=== PATIENT | female | born 1980 ===

== ENCOUNTER 2017-01-14 05:52 | Inpatient (IN) ==
[2017-01-14] MEDS ORDERED: MEPERIDINE 50 MG/1 ML VIAL IV PRN (06:12)
[2017-01-14] MEDS ORDERED: ONDANSETRON 4 MG/2 ML VIAL IV PRN (06:12)
[2017-01-14] MEDS: LACTATED RINGERS 1,000 ML IV SCH ×2 (06:20→10:13)
[2017-01-14] MEDS ORDERED: OXYTOCIN/LR 20 UNIT/1,000 ML BAG IV SCH (06:30)
[2017-01-14 06:32] LABS: Basophils % 0.3 % (0.0-0.8); Eosinophils # 0.1 10*3/uL (0.0-0.87); Eosinophils % 1.1 % (0.00-10.9); Hematocrit 33.3 VOL% (35.7-47.0); Hemoglobin 11.4 GM/DL (12.0-16.0); Immature Granulocytes % 0.8 %; Immature Granulocytes Absolute 0.06 #; Lymphocytes % 27.8 % (21.3-54.2); Mean Corpuscular HGB Conc 34.2 GM/DL (32-36); Mean Corpuscular Hemoglobin 31 PG (27-34); Mean Platelet Volume 11.3 FL (9.6-12.0); Monocytes # 0.7 10*3/uL (0.11-0.8); Monocytes % 9.6 % (1.7-12.7); Neutrophils # 4.3 10*3/uL (1.4-7.4); Neutrophils % 60.4 % (38.7-73.9); Platelet Count 179 T/CUMM (130-400); Red Cell Distribution Width 13.6 % (9.3-17.3); White Blood Count 7.1 T/CUMM (4-12)
[2017-01-14 07:20] LABS: Alanine Aminotransferase 15 U/L (13-56); Albumin 2.5 G/DL (3.4-5.0); Alkaline Phosphatase 254 U/L (45-117); Aspartate Amino Transferase 12 U/L (0-37); Bilirubin,Total < 0.39 MG/DL (0.2-1.0); Blood Urea Nitrogen 9 MG/DL (7-18); Calcium 8.4 MG/DL (8.5-10.1); Glucose 68 MG/DL (74-106); Osmolality,Calculated 275.4 MOS/KG (273-304); Potassium 3.7 MMOL/L (3.5-5.1); Sodium 140 MMOL/L (136-145); Total Protein 6.4 G/DL (6.4-8.3); Uric Acid 3.2 MG/DL (2.6-6.0)
[2017-01-14] MEDS ORDERED: ONDANSETRON 4 MG/2 ML VIAL IV ONE (07:52)
[2017-01-14] MEDS ORDERED: hydrOXYzine HCL 25 MG/1 ML VIAL IM PRN (07:52)
[2017-01-14] MEDS ORDERED: PROMETHAZINE 25 MG/1 ML VIAL IM ONE (07:52)
[2017-01-14] MEDS ORDERED: fentaNYL 2 MCG/ROPIV 0.2% EPID 150 ML EPIDURAL SCH (07:52)
[2017-01-14] MEDS ORDERED: diphenhydrAMINE 50 MG/1 ML VIAL IV PRN ×2 (07:52)
[2017-01-14] MEDS ORDERED: ePHEDrine 50 MG/ML AMP IV PRN (07:52)
[2017-01-14] MEDS ORDERED: LACTATED RINGERS 1,000 ML IV ONE (07:52)
[2017-01-14] MEDS ORDERED: LACTATED RINGERS 500 ML IV ONE (07:52)
[2017-01-14] MEDS ORDERED: LACTATED RINGERS 1,000 ML IV SCH (08:00)
[2017-01-14] MEDS ORDERED: FAMOTIDINE 20 MG/2 ML VIAL IV ONE (09:54)
[2017-01-14] MEDS ORDERED: CITRIC ACID/SODIUM CITRATE 30 ML UDCUP PO ONE (09:55)
--- NOTE | 2017-01-14 10:05 | OB/GYN History & Physical ---
History of Present Illness Chief complaint: In for elective induction of labor due to term . History of present illness: Ms. Bliss is a 36 year old female who is a 8 para 7 living 7. Her [place] is 01/20/2017. Estimated gestational age is 39 weeks and 1 day. The patient presents for elective induction of labor due to term . The risk and benefits have been thoroughly discussed with this patient and significant other, plan of care has been discussed with Dr. Khoury and all parties are in agreement plan. The patient had limited care through the [facility] she had several missed appointments however her was uneventful. labs: She is O+, rubella is immune, serology is nonreactive, hepatitis B is negative, HIV is negative, and GBS cultures negative. The patient has had 7 previous vaginal deliveries her largest infant weighed 8 pounds and 11 ounces. She reported no complications with any of her pregnancies. Home Medications Medication Instructions Recorded Confirmed Type Pnv No.95/Ferrous Fum/Folic AC 1 each PO DAILY 01/14/17 01/14/17 History [ Tablet] Allergies Allergy/AdvReac Type Severity Reaction Status Date / Time No Known Allergies Allergy Verified 01/14/17 06:12 12 point system: reviewed and no additional remarkable complaints except as stated Medical,Surgical,& Family Hx - Medical History HEENT: History of: Eye Problem (GLASSES) Respiratory: History of: Asthma Reproductive: No history of: Ectopic , Complication - Surgical History Surgical History: noncontributory Reproductive Surgeries: Patient denies;: Section - Family History Family History: Reports;: Family Diabetes (MOTHER AND BROTHER) - Social History Smoking Status: Never smoker Frequency of Alcohol Use: None Type of Drug Use: None Marital Status: Single Lives With:: Significant Other Functional capacity: independent ambulation Exam [employer] - Constitutional Vitals: Vital Signs Temp Pulse Resp BP 01/14/17 06:57 97.6 F 63 20 125/68 General appearance: no acute distress - Antepartum / Post Antepartum Exam Cervix - Dilatation: 4 cm Effacement: 70% Station: -2 Rupture: Intact Presentation: Vertex Heart Rate: 140 Breast: bilateral: normal Abdomen obstetrics: Present: bowel sounds normal Vulva: bilateral: normal Vagina: Present: normal moisture Uterus exam: Present: enlarged Anus/Rectum: Present: normal perianal skin - Head Head exam: Present: normal inspection - Respiratory Respiratory exam: Present: clear to auscultation bilaterally - Cardiovascular Cardiovascular exam: Present: regular rate and rhythm - GI/Abdominal GI/Abdominal exam: Present: normal bowel sounds, soft - Extremities Exam Extremities exam: Present: normal inspection - Back Exam Back exam: Present: normal inspection - Neurological Exam Neurological exam: Present: alert, oriented X3 - Psychiatric Psychiatric exam: Present: normal affect, normal mood - Skin Skin exam: Present: normal color, warm Assessment and Plan (1) Term Status: Acute Assessment and plan: Admit IV fluids IV Pitocin per protocol Artificial rupture membranes when appropriate Internal monitors if indicated Epidural anesthesia if desired Anticipate Current Visit: Yes Results - Labs CBC & BMP: 01/14/17 06:25 01/14/17 06:25
[2017-01-14] MEDS ORDERED: METHYLERGONOVINE 0.2 MG/1 ML AMP ONE (11:34)
--- NOTE | 2017-01-14 11:51 | Event Note ---
HPI: Ms. Bliss is a 36-year-old female who presented to the labor department for elective induction of labor due to term . The risk and benefits were thoroughly discussed with this patient and significant other, plan of care was discussed with Dr. Khoury and all parties were in agreement plan. Stage I: The patient was admitted she received IV fluids and IV Pitocin per protocol. Artificial rupture membranes was performed clear fluid noted. The patient progressed in labor with a CAT 1 tracing. Epidural anesthesia was obtained for pain control. The patient had an uneventful course of labor. Stage II: The patient was complete and complained of pressure and desire to push. The patient pushed for approximately 3 times at which time the 's head was delivered. The mouth and nose were suctioned on the perineum. The remainder the was delivered at 1140. A viable female infant was noted. Apgars were 8 at 1 minute and 9 at 5 minutes. weight was 7 pounds and 0 ounces. A cord pH was obtained and sent to the lab. The was then placed on the mom's abdomen for skin to skin bonding. Stage III: A spontaneous delivery of a Carrillo placenta with a three-vessel cord noted. The placenta was further examined appeared to be grossly intact. The vagina cervix was inspected with no tears or lacerations noted. Estimated blood loss was approximately 100 cc. At the time of dictation mother and baby are both in stable condition.
[2017-01-14] MEDS ORDERED: LANOLIN 50% CREAM 0.3 OZ TUBE TOP PRN (11:52)
[2017-01-14] MEDS ORDERED: BISACODYL 10 MG SUPP RECTAL PRN (11:52)
[2017-01-14] MEDS ORDERED: MEASLES/MUMPS/RUBELLA VACCINE 0.5 ML VIAL SUBCUT ONE (11:52)
[2017-01-14] MEDS ORDERED: OXYTOCIN/LR 20 UNIT/1,000 ML BAG IV ONE (11:52)
[2017-01-14] MEDS ORDERED: DIPH/TET/ACEL PERT BOOSTER VACCINE 0.5 ML VIAL IM ONE (11:52)
[2017-01-14] MEDS ORDERED: WITCH HAZEL PADS 100/JAR TOP PRN (11:52)
[2017-01-14] MEDS ORDERED: oxyCODONE/ACETAMINOPHEN 5-325 MG TABLET PO PRN (11:52)
[2017-01-14] MEDS ORDERED: ACETAMINOPHEN 325 MG TABLET PO PRN (11:52)
[2017-01-14] MEDS ORDERED: RHO(D) IMMUNE GLOBULIN 300 MCG SYRINGE IM ONE (11:52)
[2017-01-14] MEDS ORDERED: BENZOCAINE 20%/MENTHOL 0.5% SPRAY 56 GM CAN TOP PRN (11:52)
[2017-01-14] MEDS ORDERED: HYDROCORTISONE 2.5% RECTAL CREAM 30 GM TUBE TOP PRN (11:52)
[2017-01-14] MEDS ORDERED: ACETAMINOPHEN/CODEINE 300-30 MG TABLET PO PRN (11:54)
[2017-01-14 12:04] LABS: Cord Arterial Blood HCO3 25.5 MMOL/L
[2017-01-14 12:07] LABS: Cord Venous Blood PCO2 36.9 MMHG; Cord Venous Blood PO2 28.3 MMHG
[2017-01-14] MEDS: IBUPROFEN 800 MG TABLET PO PRN (17:53)
--- NOTE | 2017-01-14 18:13 | Anesthesia Post-Op ---
Anesthesia Post OP - Post Ansesthetic Evaluation Patient seen in post op: Yes Resp: within normal limits CV: within normal limits Mental: within normal limits Temp: within normal limits [id number]: within normal limits Nausea and Vomiting: within normal limits Pain: within normal limits
[2017-01-14] MEDS: DOCUSATE SODIUM 100 MG CAPSULE PO SCH (20:44)
[2017-01-15] MEDS: oxyCODONE/ACETAMINOPHEN 5-325 MG TABLET PO PRN ×4 (00:15→21:52)
[2017-01-15 06:46] LABS: Basophils % 0.2 % (0.0-0.8); Eosinophils # 0.1 10*3/uL (0.0-0.87); Eosinophils % 2.1 % (0.00-10.9); Hematocrit 28.4 VOL% (35.7-47.0); Hemoglobin 9.7 GM/DL (12.0-16.0); Immature Granulocytes % 0.6 %; Immature Granulocytes Absolute 0.04 #; Lymphocytes % 31.5 % (21.3-54.2); Mean Corpuscular HGB Conc 34.2 GM/DL (32-36); Mean Corpuscular Hemoglobin 31 PG (27-34); Mean Corpuscular Volume 89.9 FL (87-102); Mean Platelet Volume 11.3 FL (9.6-12.0); Monocytes # 0.5 10*3/uL (0.11-0.8); Monocytes % 8.1 % (1.7-12.7); Neutrophils # 3.6 10*3/uL (1.4-7.4); Neutrophils % 57.5 % (38.7-73.9); Platelet Count 137 T/CUMM (130-400); Red Blood Count 3.16 MC/CUMM (3.8-5.5); Red Cell Distribution Width 13.5 % (9.3-17.3); White Blood Count 6.3 T/CUMM (4-12)
[2017-01-15] MEDS: DOCUSATE SODIUM 100 MG CAPSULE PO SCH ×2 (08:53→21:52)
[2017-01-15] MEDS: IBUPROFEN 800 MG TABLET PO PRN (08:55)
--- NOTE | 2017-01-15 09:47 | OB/GYN Progress Note ---
Assessment and Plan (1) Term Status: Acute Assessment and plan: Admit IV fluids IV Pitocin per protocol Artificial rupture membranes when appropriate Internal monitors if indicated Epidural anesthesia if desired Anticipate Current Visit: Yes (2) Vaginal delivery Status: Acute Assessment and plan: Initiate routine orders. Current Visit: Yes DATA ANALYSIS INTERN - PN: Subj Interval history: Stable with no complaints. Bonding well with Exam DATA ANALYSIS INTERN - Constitutional Vitals: Vital Signs Temp Pulse Resp BP Pulse Ox 01/15/17 07:23 97.9 F 57 L 20 125/79 100 01/15/17 04:00 97.1 F L 55 L 20 124/72 98 01/15/17 02:00 16 01/15/17 00:15 98 F 66 18 98/64 99 01/14/17 19:15 97.5 F L 67 20 127/77 98 01/14/17 17:00 67 20 122/66 98 01/14/17 16:00 97.1 F L 68 18 122/66 98 01/14/17 15:00 55 L 18 126/73 98 01/14/17 14:30 63 20 130/73 97 01/14/17 14:00 97.6 F 62 20 115/53 97 01/14/17 12:00 97.4 F L 66 22 123/61 General appearance: no acute distress - Antepartum / Post Post Exam Breast: bilateral: normal Abdomen obstetrics: Present: bowel sounds normal Vagina: Present: normal moisture, discharge (Light lochia rubra) Uterus exam: Present: enlarged Anus/Rectum: Present: normal perianal skin - Respiratory Respiratory exam: Present: clear to auscultation bilaterally - Cardiovascular Cardiovascular exam: Present: regular rate and rhythm - GI/Abdominal GI/Abdominal exam: Present: normal bowel sounds, soft - Extremities Exam Extremities exam: Present: normal inspection - Back Exam Back exam: Present: normal inspection - Neurological Exam Neurological exam: Present: alert, oriented X3 - Psychiatric Psychiatric exam: Present: normal affect, normal mood - Skin Skin exam: Present: normal color, warm Results - Labs CBC & BMP: 01/15/17 06:30 01/14/17 06:25
[2017-01-16] MEDS: DOCUSATE SODIUM 100 MG CAPSULE PO SCH (09:02)
--- NOTE | 2017-01-16 11:34 | Discharge Summary ---
Hospital Course - Hospital Course Hospital Course: Ms. Bliss is a 36-year-old female who presents to the labor department for elective induction of labor due to term . The patient subsequently delivered a viable with no complications. She has followed a routine course and she has done well. Her bleeding is minimal with no odor. She is voiding without difficulty. Her perineum is intact with no edema. Her vital signs and lab values are stable. She is bonding well with her . She will be discharged home prescriptions for pain and a follow-up appointment in our office. Diagnosis - Discharge Diagnosis (1) Term Status: Acute (2) Vaginal delivery Status: Acute Specialty Discharge - Follow Up or Referrals Follow up with: Hieu Khoury MD [Physician] - (follow up in 6 weeks.) Discharge Plan - Discharge Data Disposition: Disch To Home/Self Care Condition at Discharge: Stable Discharge Diet: advance to your usual diet Activity: resume usual activities as tolerated Hygiene: no restrictions Weight Bearing at Discharge: weight bear as tolerated Driving: no restrictions Contact your physician if you experience:: fever over 101, pain uncontrolled by pain medications - Discharge Medications New Acetamin/Codeine 300-30 Tab [Tylenol/Codeine #3] 2 tablet PO Q4H PRN #30 tablet PRN Reason: Pain Mild (1-3) Hydrocortisone 2.5% Rectal Cr [Anusol HC Cream] 1 applic TOP QID PRN #30 applic PRN Reason: Hemorrhoids No Action Pnv No.95/Ferrous Fum/Folic AC [ Tablet] 1 each PO DAILY - Follow Up or Referral - Forms/Instructions Instructions: Perineal Care (DC), Bleeding (DC) Exam - Constitutional Vitals: Period Temp Pulse Resp BP Sys/Graves Pulse Ox Last 24 Hr 96.8 F-98.3 F 61-67 18-20 107-133/61-84 96-98 General appearance: no acute distress - Head Head exam: Present: normal inspection - Respiratory Respiratory exam: Present: clear to auscultation bilaterally - Cardiovascular Cardiovascular exam: Present: regular rate and rhythm - GI/Abdominal GI/Abdominal exam: Present: normal bowel sounds, soft - Extremities Exam Extremities exam: Present: normal inspection - Neurological Exam Neurological exam: Present: alert, oriented X3 - Psychiatric Psychiatric exam: Present: normal affect, normal mood - Skin Skin exam: Present: normal color, warm DS: Provider Date of admission: 01/14/17 06:12 Primary care physician: Griffin Pyle MD Attending physician on admission: Hieu Khoury MD Consults: 01/14/17 06:12 Consult to Anesthesiology [CONS] Routine Consulting Provider: Reason for Anesthesiology: Epidural Consult Comment: Epidural for pain managment 01/14/17 11:52 Consult to Public Administration Teacher [CONS] Routine Consult Public Administration Teacher: Breast Feeding Discharging clinician: Pamela Jara CNM Expected date of discharge: 01/16/17
[2017-01-16 13:06] VITALS: BP 132/79
== END 2017-01-16 13:00 | disposition home or self-care (01) | DRG 560 ==
LOC: N.LDOUT 05:52 → N.LD 05:57 → N.OB 13:51
PROVIDERS: ADMIT Obstetrics & Gynecology; ATTEND Obstetrics & Gynecology

== ENCOUNTER 2018-02-07 21:41 | Inpatient (IN) ==
[2018-02-07] MEDS ORDERED: ONDANSETRON 4 MG/2 ML VIAL IV PRN (21:55)
[2018-02-07] MEDS ORDERED: ACETAMINOPHEN 325 MG TABLET PO PRN (21:55)
[2018-02-07] MEDS ORDERED: MEPERIDINE 50 MG/1 ML VIAL IV PRN (21:55)
[2018-02-07] MEDS ORDERED: BUTORPHANOL 2 MG/ML VIAL IV PRN (21:55)
[2018-02-07] MEDS ORDERED: CITRIC ACID/SODIUM CITRATE 30 ML UDCUP PO ONE (21:56)
[2018-02-07] MEDS ORDERED: FAMOTIDINE 20 MG/2 ML VIAL IV ONE (21:56)
[2018-02-07] MEDS ORDERED: LACTATED RINGERS 1,000 ML IV SCH (22:00)
[2018-02-07] MEDS ORDERED: fentaNYL 2 MCG/ROPIV 0.2% EPID 150 ML EPIDURAL SCH (22:00)
[2018-02-07 22:23] LABS: Basophils % 0.1 % (0.0-0.8); Eosinophils % 0.5 % (0.00-10.9); Hemoglobin 10.7 GM/DL (12.0-16.0); Immature Granulocytes % 0.7 %; Immature Granulocytes Absolute 0.06 #; Lymphocytes % 12.1 % (21.3-54.2); Mean Corpuscular HGB Conc 33.4 GM/DL (32-36); Mean Corpuscular Hemoglobin 31 PG (27-34); Mean Corpuscular Volume 91.2 FL (87-102); Mean Platelet Volume 11.7 FL (9.6-12.0); Monocytes # 0.5 10*3/uL (0.11-0.8); Monocytes % 6.1 % (1.7-12.7); Neutrophils # 6.6 10*3/uL (1.4-7.4); Neutrophils % 80.5 % (38.7-73.9); Platelet Count 158 T/CUMM (130-400); Red Blood Count 3.51 MC/CUMM (3.8-5.5); Red Cell Distribution Width 14.1 % (9.3-17.3); White Blood Count 8.2 T/CUMM (4-12)
[2018-02-07] MEDS ORDERED: miSOPROStol 200 MCG TABLET ONE (22:30)
[2018-02-07] MEDS ORDERED: LIDOCAINE 1% 50 ML VIAL ONE (22:30)
[2018-02-07] MEDS ORDERED: METHYLERGONOVINE 0.2 MG/1 ML AMP ONE (22:30)
[2018-02-07] MEDS ORDERED: OXYTOCIN 40 UNIT in LACTATED RINGERS 1,000 ML IV ONE (22:30)
[2018-02-07 23:07] LABS: Albumin 2.4 G/DL (3.4-5.0); Bilirubin,Total 0.4 MG/DL (0.2-1.0); Calcium 7.9 MG/DL (8.5-10.1); Osmolality,Calculated 279.1 MOS/KG (273-304); Potassium 3.5 MMOL/L (3.5-5.1); Total Protein 6.4 G/DL (6.4-8.3)
[2018-02-07] MEDS ORDERED: OXYTOCIN/LR 20 UNIT/1,000 ML BAG IV SCH (23:30)
[2018-02-08 00:18] LABS: Apearance,Urine CLEAR (Clear); Bilirubin,Urine Negative (Negative); Blood, Urine Negative (Negative); Glucose,Urine (UA) Negative (Negative); Ketones,Urine Negative (Negative); Mucus,Urine Occasional /LPF (Occasional); Nitrite,Urine Negative (Negative); Protein,Urine Negative; RBC,Urine 1 /HPF (0-4); Squamous Epithelial Cell,Urine Occasional /HPF (0-10); Urine Color Yellow (Yellow); Urine Specific Gravity 1.011 (1.001-1.035); WBC,Urine 1 /HPF (0-6)
[2018-02-08] MEDS ORDERED: DIPH/TET/ACEL PERT BOOSTER VACCINE 0.5 ML VIAL IM ONE (05:56)
[2018-02-08] MEDS ORDERED: WITCH HAZEL PADS 100/JAR TOP PRN (05:56)
[2018-02-08] MEDS ORDERED: HYDROCORTISONE 2.5% RECTAL CREAM 30 GM TUBE TOP PRN (05:56)
[2018-02-08] MEDS ORDERED: OXYTOCIN/LR 20 UNIT/1,000 ML BAG IV ONE (05:56)
[2018-02-08] MEDS ORDERED: ACETAMINOPHEN 325 MG TABLET PO PRN (05:56)
[2018-02-08] MEDS ORDERED: MEASLES/MUMPS/RUBELLA VACCINE 0.5 ML VIAL SUBCUT ONE (05:56)
[2018-02-08] MEDS ORDERED: BENZOCAINE 20%/MENTHOL 0.5% SPRAY 56 GM CAN TOP PRN (05:56)
[2018-02-08] MEDS ORDERED: oxyCODONE/ACETAMINOPHEN 5-325 MG TABLET PO PRN (05:56)
[2018-02-08] MEDS ORDERED: RHO(D) IMMUNE GLOBULIN 300 MCG SYRINGE IM ONE (05:56)
[2018-02-08] MEDS ORDERED: LANOLIN 50% CREAM 0.3 OZ TUBE TOP PRN (05:56)
[2018-02-08] MEDS ORDERED: BISACODYL 10 MG SUPP RECTAL PRN (05:56)
[2018-02-08] MEDS ORDERED: ONDANSETRON 4 MG/2 ML VIAL IV PRN (05:56)
[2018-02-08] MEDS ORDERED: ceFAZolin 2,000 MG in PREMIX 1 EACH IV ONE (06:00)
[2018-02-08] MEDS ORDERED: ceFAZolin 2,000 MG in PREMIX 1 EACH IV SCH ×2 (09:33→12:00)
[2018-02-08] MEDS: IBUPROFEN 800 MG TABLET PO PRN ×3 (09:35→21:06)
[2018-02-08] MEDS: oxyCODONE/ACETAMINOPHEN 5-325 MG TABLET PO PRN ×3 (09:36→21:06)
[2018-02-08] MEDS: ACETAMINOPHEN 325 MG TABLET PO SCH (14:12)
[2018-02-08] MEDS: DOCUSATE SODIUM 100 MG CAPSULE PO SCH (21:05)
[2018-02-09] MEDS: ACETAMINOPHEN 325 MG TABLET PO SCH ×4 (01:17→18:19)
[2018-02-09 04:22] LABS: Basophils % 0.2 % (0.0-0.8); Eosinophils # 0.1 10*3/uL (0.0-0.87); Eosinophils % 1.7 % (0.00-10.9); Hematocrit 28.7 VOL% (35.7-47.0); Hemoglobin 9.4 GM/DL (12.0-16.0); Immature Granulocytes % 0.6 %; Immature Granulocytes Absolute 0.05 #; Lymphocytes # 2.4 10*3/uL (1.4-4.0); Lymphocytes % 28.8 % (21.3-54.2); Mean Corpuscular HGB Conc 32.8 GM/DL (32-36); Mean Corpuscular Hemoglobin 30 PG (27-34); Mean Corpuscular Volume 92.3 FL (87-102); Mean Platelet Volume 12.1 FL (9.6-12.0); Monocytes # 0.6 10*3/uL (0.11-0.8); Monocytes % 7.2 % (1.7-12.7); Neutrophils # 5.1 10*3/uL (1.4-7.4); Neutrophils % 61.5 % (38.7-73.9); Platelet Count 148 T/CUMM (130-400); Red Blood Count 3.11 MC/CUMM (3.8-5.5); White Blood Count 8.3 T/CUMM (4-12)
[2018-02-09] MEDS: IBUPROFEN 800 MG TABLET PO PRN ×3 (08:18→20:38)
[2018-02-09] MEDS: DOCUSATE SODIUM 100 MG CAPSULE PO SCH ×2 (08:19→20:38)
[2018-02-09] MEDS: oxyCODONE/ACETAMINOPHEN 5-325 MG TABLET PO PRN ×3 (08:19→20:39)
[2018-02-10 07:19] VITALS: BP 134/87
[2018-02-10] MEDS: oxyCODONE/ACETAMINOPHEN 5-325 MG TABLET PO PRN (07:37)
[2018-02-10] MEDS: IBUPROFEN 800 MG TABLET PO PRN (07:37)
[2018-02-10] MEDS: DOCUSATE SODIUM 100 MG CAPSULE PO SCH (11:15)
== END 2018-02-10 11:35 | disposition home or self-care (01) | DRG 774 ==
LOC: N.LDOUT 21:41 → N.LD 21:44 → N.OB 02-08 09:20
PROVIDERS: ADMIT Obstetrics & Gynecology; ATTEND Obstetrics & Gynecology